=== PATIENT | female | born 1930 ===

== ENCOUNTER 2018-08-15 10:10 | Outpatient (CLI) | payer OTHER ==
[~2018-08-15] VITALS: Ht 157.5 cm; Wt 68.0 kg
== END 2018-08-15 13:28 | disposition home or self-care (01) ==
LOC: OFIC 805 10:10
DX: R09.81 Nasal congestion (principal); J34.89 Other specified disorders of nose and nasal sinuses

== ENCOUNTER 2018-09-22 09:50 | Outpatient (CLI) | payer OTHER ==
[~2018-09-22] VITALS: Ht 152.4 cm; Wt 68.0 kg
== END 2018-09-22 10:05 | disposition home or self-care (01) ==
LOC: OFIC 805 09:50
DX: R09.81 Nasal congestion (principal); J33.8 Other polyp of sinus